=== PATIENT | male | born 1975 | race African-American/Black ===

== ENCOUNTER 2017-09-19 00:36 | Emergency (ER) | payer SELFPAY ==
[~2017-09-19] VITALS: Ht 193 cm; Wt 89.8 kg
[2017-09-19 01:12] VITALS: BP 117/65
[2017-09-19 01:15] LABS: BASOPHILS % (AUTO) 0.9 % (0.0-2.0); LYMPHOCYTES % (AUTO) 32.9 % (20.0-45.0); MEAN CORPUSCULAR HEMOGLOBIN 29.4 PG (27.0-31.0); MEAN CORPUSCULAR HGB CONC 33.3 G/DL (32.0-36.0); MEAN CORPUSCULAR VOLUME 88 FL (80-99); MEAN PLATELET VOLUME 7.6 FL (6.5-10.1); MONOCYTES % (AUTO) 8.4 % (1.0-10.0); NEUTROPHILS % (AUTO) 56.8 % (45.0-75.0); PLATELET COUNT 190 K/UL (150-450); RED BLOOD COUNT 5.15 M/UL (4.70-6.10); RED CELL DISTRIBUTION WIDTH 11.8 % (11.6-14.8); WHITE BLOOD COUNT 5.7 K/UL (4.8-10.8)
[2017-09-19 01:25] LABS: ANION GAP 8 mmol/L (5-15); CALCIUM 8.8 MG/DL (8.5-10.1); CARBON DIOXIDE 28 MMOL/L (21-32); CHLORIDE 103 MMOL/L (98-107); CREATININE 1.4 MG/DL (0.55-1.30); GLOMERULAR FILTRATION RATE > 60 mL/min (>60); POTASSIUM 3.5 MMOL/L (3.5-5.1); SODIUM 139 MMOL/L (136-145)
[2017-09-19 01:31] LABS: ALANINE AMINOTRANSFERASE 27 U/L (12-78); ALBUMIN/GLOBULIN RATIO 1.2 (1.0-2.7); ALCOHOL < 3 mg/dL; ASPARTATE AMINO TRANSFERASE 35 U/L (15-37); TOTAL PROTEIN 6.7 G/DL (6.4-8.2)
--- NOTE | 2017-09-19 01:34 | Emergency Room Report ---
History of Present Illness General Chief Complaint: Syncope Source: Patient Present Illness HPI 42-year-old male presents ED for evaluation. Friend brought patient to the emergency room because he passed out at the movie theater today. Patient had a witnessed fall and possible shaking episode. Patient does have a history of seizure and has not had a seizure in over 10 years. Patient admits to marijuana use. Denies any other drug use. Feels very tremulous and notes diffuse body spasms. States pain is a 10 out of 10, cramping, nonradiating. Denies headaches, blurry vision, nausea or vomiting. Denies chest pain shortness of breath. No other aggravating relieving factors. Denies any other associated symptoms Allergies: Coded Allergies: No Known Allergies (Unverified , 09/19/17) Patient History Past Medical History: seizures Past Surgical History: none Pertinent Family History: none Social History: Reports: drug use, Denies: smoking, alcohol use Immunizations: UTD Reviewed Nursing Documentation: PMH: Agreed, PSxH: Agreed Nursing Documentation-PMH Hx Seizures: Yes - seizure 10yrs ago Review of Systems All Other Systems: negative except mentioned in HPI Physical Exam Vital Signs Date Time Temp Pulse Resp B/P (MAP) Pulse Ox O2 Delivery O2 Flow Rate FiO2 09/19/17 00:37 96.6 100 18 153/101 98 Room Air Sp02 EP Interpretation: reviewed, normal General Appearance: alert, GCS 15, non-toxic, mild distress Head: normocephalic, atraumatic Eyes: bilateral eye normal inspection, bilateral eye PERRL ENT: hearing grossly normal, normal pharynx, no angioedema, normal voice Neck: full range of motion, supple/symm/no masses Respiratory: chest non-tender, lungs clear, normal breath sounds, speaking full sentences Cardiovascular #1: regular rate, rhythm, no edema Cardiovascular #2: 2+ carotid (R), 2+ carotid (L), 2+ radial (R), 2+ radial (L) , 2+ dorsalis pedis (R), 2+ dorsalis pedis (L) Gastrointestinal: normal bowel sounds, non tender, soft, non-distended, no guarding, no rebound Rectal: deferred Genitourinary: normal inspection, no CVA tenderness Musculoskeletal: back normal, gait/station normal, normal range of motion, non- tender Neurologic: alert, oriented x3, responsive, motor strength/tone normal, sensory intact, speech normal Psychiatric: judgement/insight normal, memory normal, no suicidal/homicidal ideation, anxious Reflexes: 3+ bicep (R), 3+ bicep (L), 3+ tricep (R), 3+ tricep (L), 3+ knee (R) , 3+ knee (L) Skin: normal color, no rash, warm/dry, well hydrated Lymphatic: no adenopathy Medical Decision Making Diagnostic Impression: Primary Impression: Syncope Qualified Codes: R55 - Syncope and collapse Additional Impression: Muscle spasm ER Course Hospital Course 42-year-old male presents ED s/p syncopal episode. c/o diffuse body pain/spasms Differential diagnoses include: arrythmia, dehydration, intracranial bleed, seizure Clinical course Patient placed on stretcher. on director of cardiac cath lab. After initial history and physical I ordered labs, EKG, chest Xray, IVFs, CT Brain labs reviewed- no leukocytosis, Hb/Hct stable, electrolytes ok, troponins negative CT Brain - unremarkable EKG - NSR, no acute ischemic changes interpreted by me Patient given Valium, Toradol and morphine with muscle spasms improved. Patient feels better wishes to be discharged. Patient did smoke marijuana earlier which could be there caused a seizure (patient has remote history of seizures) or caused patient to pass out. Regardless patient is safe to discharge. girlfriend at bedside and can take patient home I. I feel this is a highly complex case requiring extensive working including EKG/Rhythm strip, Xray/CT/US, Blood/urine lab work, repeat exams while in ED, and administration of strong opiates/narcotics for pain control, admission to hospital or close patient follow up. Diagnosis - syncope, muscle spasm Stable and discharged to home with Rx Motrin, [place], Flexeril. Followup with PMD. Return to ED if symptoms recur or worsen Labs Test 09/19/17 01:00 White Blood Count 5.7 K/UL (4.8-10.8) Red Blood Count 5.15 M/UL (4.70-6.10) Hemoglobin 15.1 G/DL (14.2-18.0) Hematocrit 45.4 % (42.0-52.0) Mean Corpuscular Volume 88 FL (80-99) Mean Corpuscular Hemoglobin 29.4 PG (27.0-31.0) Mean Corpuscular Hemoglobin Concent 33.3 G/DL (32.0-36.0) Red Cell Distribution Width 11.8 % (11.6-14.8) Platelet Count 190 K/UL (150-450) Mean Platelet Volume 7.6 FL (6.5-10.1) Neutrophils (%) (Auto) 56.8 % (45.0-75.0) Lymphocytes (%) (Auto) 32.9 % (20.0-45.0) Monocytes (%) (Auto) 8.4 % (1.0-10.0) Eosinophils (%) (Auto) 1.0 % (0.0-3.0) Basophils (%) (Auto) 0.9 % (0.0-2.0) Sodium Level 139 MMOL/L (136-145) Potassium Level 3.5 MMOL/L (3.5-5.1) Chloride Level 103 MMOL/L (98-107) Carbon Dioxide Level 28 MMOL/L (21-32) Anion Gap 8 mmol/L (5-15) Blood Urea Nitrogen 15 mg/dL (7-18) Creatinine 1.4 MG/DL (0.55-1.30) Estimat Glomerular Filtration Rate > 60 mL/min (>60) Glucose Level 140 MG/DL (74-106) Calcium Level 8.8 MG/DL (8.5-10.1) Total Bilirubin 1.0 MG/DL (0.2-1.0) Aspartate Amino Transf (AST/SGOT) 35 U/L (15-37) Alanine Aminotransferase (ALT/SGPT) 27 U/L (12-78) Alkaline Phosphatase 70 U/L (46-116) Total Creatine Kinase 635 U/L (26-308) Troponin I 0.005 ng/mL (0.000-0.056) Total Protein 6.7 G/DL (6.4-8.2) Albumin 3.7 G/DL (3.4-5.0) Globulin 3.0 g/dL Albumin/Globulin Ratio 1.2 (1.0-2.7) Salicylates Level < 0.2 ug/mL (2.8-20) Acetaminophen Level < 2 MCG/ML (10-30) Serum Alcohol < 3 mg/dL EKG Diagnostic Results Rate: normal Rhythm: NSR ST Segments: no acute changes ASA given to the pt in ED: No Rhythm Strip Diag. Results EP Interpretation: yes Rhythm: NSR, no PVC's, no ectopy CT/MRI/US Diagnostic Results CT/MRI/US Diagnostic Results : Imaging Test Ordered: CT Head Impression no acute process Last Vital Signs Date Time Temp Pulse Resp B/P (MAP) Pulse Ox O2 Delivery O2 Flow Rate FiO2 09/19/17 01:12 96.9 86 18 117/65 98 Room Air Status: improved Disposition: HOME, SELF-CARE Condition: Stable Scripts Cyclobenzaprine Hcl* (FLEXERIL*) 10 Mg Tablet 10 MG ORAL TID Y for Muscle Spasm, #20 TAB Prov: HANY BOLAÑOS M.D. 09/19/17 Hydrocodone Bit/Acetaminophen 5-325* (NORCO 5-325*) 1 Each Tablet 1 TAB ORAL Q6H Y for For Pain, #10 TAB 0 Refills Prov: HANY BOLAÑOS M.D. 09/19/17 Ibuprofen* (MOTRIN*) 600 Mg Tablet 600 MG ORAL Q8H Y for For Pain, #30 TAB 0 Refills Prov: HANY BOLAÑOS M.D. 09/19/17 Referrals: NOT [facility]OSEN [facility]/,REFERRING (PCP) HANY BOLAÑOS M.D. Sep 19, 2017 01:34
[2017-09-19 02:01] LABS: ACETAMINOPHEN < 2 MCG/ML (10-30)
[2017-09-19] MEDS: Ketorolac 30mg Inj IM ONE (02:13)
[2017-09-19 02:34] VITALS: BP 116/61
[2017-09-19] MEDS ORDERED: Morphine Sulfate 4mg/ml Inj ONE (02:39)
[2017-09-19] MEDS ORDERED: NORCO 5-325 TA1 EACH ORAL (02:40)
[2017-09-19] MEDS ORDERED: CYCLOBENZAPRINE10 MG ORAL (02:40)
[2017-09-19] MEDS ORDERED: IBUPROFEN600 MG ORAL (02:40)
[2017-09-19] MEDS: Morphine Sulfate 4mg/ml Inj IVP ONE (02:48)
[2017-09-19 02:50] VITALS: BP 116/61
--- NOTE | 2017-09-19 12:18 | Diagnostic Imaging Report ---
Indication: SYNCOPE Technique: Continuous helical CT scanning of the head was performed without intravenous contrast material. Axial and coronal 5 mm sections were generated. Radiation dose was minimized using automated exposure control Dose: Total Dose Length Product - DLP [address] Dose Index - CTDIvol(s) 70.38 mGy. Comparison: None Findings: The ventricular system is normal in size and configuration. There is no shift of midline structures. No abnormal extra-axial fluid collections are noted. There is no evidence of intracerebral bleeding. No other abnormal high or low density areas are noted within the brain. The calvarium is intact. Visualized orbits and sinuses are unremarkable. Impression: Normal CT scan of the head without contrast material. This agrees with the preliminary interpretation provided overnight by [facility] service. The CT scanner at [facility] is accredited by the [employer] and the scans are performed using protocols designed to limit radiation exposure to as low as reasonably achievable to attain images of sufficient resolution adequate for diagnostic evaluation.
--- NOTE | 2017-09-21 08:40 | Cardiology Report ---
APPROVED REPORT EKG Measurement Heart [id number] Normal sinus rhythm Normal ECG
== END 2017-09-19 02:53 | disposition home or self-care (01) ==
LOC: EMR 01:00
DX: R55 Syncope and collapse (principal); M62.838 Other muscle spasm; F12.90 Cannabis use, unspecified, uncomplicated
CPT/HCPCS: 36415; 70450; 80053; 82550; 84484; 85025; 93005; 96361; 96372; 96374; 96375; 99284; G0480; J1885; J2270; J3360; 80329

== ENCOUNTER 2017-09-22 10:56 | Emergency (ER) | payer SELFPAY ==
[~2017-09-22] VITALS: Ht 193 cm; Wt 90.7 kg
[~2017-09-22 10:56] MED LIST: CYCLOBENZAPRINE10 MG ORAL; IBUPROFEN600 MG ORAL; NORCO 5-325 TA1 EACH ORAL
[2017-09-22 11:08] VITALS: BP 142/100
[2017-09-22] MEDS ORDERED: Ketorolac 60mg Inj IM ONE (11:30)
[2017-09-22] MEDS ORDERED: Methocarbamol 500mg tab ORAL ONE (11:30)
--- NOTE | 2017-09-22 12:18 | Diagnostic Imaging Report ---
Indication: TRAUMA neck pain, right shoulder and arm pain, dizziness Technique: Spiral acquisitions obtained through the cervical spine. No IV contrast utilized. Multiplanar reconstructions were generated. Total dose length product 517 mGycm. CTDIvol(s) 21 mGy. Dose reduction achieved using automated exposure control Comparison: None Findings: There is slight reversal of the normal cervical lordosis. Otherwise normal bony alignment. The vertebral body heights are preserved. The disc spaces are preserved. At C3-4, there is central posterior disc protrusion. This does not significantly narrow the spinal canal. The neural foramina are preserved. At C4-5, there are posterior osteophytes and broad-based central posterior disc protrusion. There is results in borderline narrowing of the spinal canal. The neural foramina are preserved. At C5-6, there is mild circumferential annular bulge which does not significantly narrow the spinal canal. At the remaining levels, no significant disc bulge or protrusion, spinal stenosis, or neural foraminal narrowing. The included extraspinal soft tissues are unremarkable. There are some calcifications in the tonsillar pillars. Impression: No acute bony trauma Minimal degenerative changes, as detailed above The CT scanner at [facility] is accredited by the [employer] and the scans are performed using protocols designed to limit radiation exposure to as low as reasonably achievable to attain images of sufficient resolution adequate for diagnostic evaluation.
--- NOTE | 2017-09-22 14:08 | Emergency Room Report ---
History of Present Illness General Chief Complaint: Pain Source: Patient Present Illness HPI Patient evaluated for syncope 09/19. Now with neck and shoulder pain which were present at that time. The pain is rated 8/10, both shoulder and neck. Worse with palpation and movement, somewhat radiating towards each other. There is also some mild lower back pain (he states he has osteoarthritis there). The event occurred in a movie theater. He started feeling nausea and became diaphoretic and got up. He walked to the entrance and then felt dizzy and passed out. There is some question about possible shaking at the time he was out. He regained consciousness quickly and came for evaluation here. He has a distant history of seizures and was treated with tegretal which was stopped over 10 years ago. He does have a resting tremor. He also reports DJD of his lower spine. No fevers, NVD (since event), dysuria, change in vision, rashes, sore throat, chest pain, palpitations, depression. 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 Reviewed Nursing Documentation: PMH: Agreed, PSxH: Agreed Nursing Documentation-PMH Hx Seizures: Yes - seizure 10yrs ago Review of Systems All Other Systems: negative except mentioned in HPI Physical Exam Vital Signs Date Time Temp Pulse Resp B/P (MAP) Pulse Ox O2 Delivery O2 Flow Rate FiO2 09/22/17 10:59 97.9 90 20 142/100 98 Room Air Sp02 EP Interpretation: reviewed, normal General Appearance: well appearing, no apparent distress, GCS 15 Head: normocephalic, atraumatic Eyes: bilateral eye normal inspection, bilateral eye PERRL, bilateral eye EOMI ENT: moist mucus membranes Neck: full range of motion, supple, tender lateral - more on R, muscular Respiratory: lungs clear, normal breath sounds Cardiovascular #1: regular rate, rhythm Cardiovascular #2: 2+ radial (R) Gastrointestinal: normal inspection, normal bowel sounds, non tender, no mass, non-distended Musculoskeletal: back normal, gait/station normal, decreased range of motion - R shoulder, with tenderness to palpation, no crepetance, elbow non-tender Neurologic: alert, oriented x3, aboriginal education teacher III-XII nml as tested, motor strength/tone normal - fine resting tremor, DTRs symmetric, sensory intact, cerebellar normal , normal gait, speech normal Psychiatric: mood/affect normal - concerned Skin: normal inspection, warm/dry Medical Decision Making Diagnostic Impression: Primary Impression: Shoulder contusion Qualified Codes: S40.011A - Contusion of right shoulder, initial encounter Additional Impressions: Neck pain Osteoarthritis Qualified Codes: M47.812 - Spondylosis without myelopathy or radiculopathy, cervical region Muscle spasm ER Course Patient presents post syncopal episode 09/19 with shoulder and neck pain. DDx; contusion, fx, sprain, strain. Due to the fact these injuries happened when the patient was unconscious and there is persistent pain, CT neck and x-rays of chest and shoulder indicated. Labs and EKG from 09/19 will be reviewed. He will be treated with toradol and robaxin. Urine ordered. EKG below. CT head Impression: Normal CT scan of the head without contrast material. Labs with slightly elevated creatinine. Normal H/H and WBC, platelets. Xrays below with DJD neck and reversal of normal curvature. Sling applied by tech and position and neurovasc checked by me = normal. Improved with treatment. Discussion regarding tremor, prior h/o seizures (by history, this was not a primary seizure) and suggested physical therapy. Measure to prevent LOC discussed. 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 Because of the forewarning, DMV notification is not indicated. Patient stable for outpatient observation and treatment. Labs reviewed from 09/19. EKG Diagnostic Results EP Interpretation: EKG reviewed from 09/19 Rate: normal Rhythm: NSR ST Segments: no acute changes Rhythm Strip Diag. Results EP Interpretation: yes - from EKG 09/19 Rhythm: NSR, no PVC's, no ectopy, other - rate 77 1st degree AV block Chest X-Ray Diagnostic Results Chest X-Ray Diagnostic Results : Chest X-Ray Ordered: Yes # of Views/Limited/Complete: 1 View Indication: Other Interpretation: no consolidation, no effusion, no pneumothorax, no acute cardiopulmonary disease Impression: No acute disease Electronically Signed by: Yandel Chinchilla MD Other X-Ray Diagnostic Results Other X-Ray Diagnostic Results : X-Ray ordered: R shoulder # of Views/Limited Vs Complete: 3 View Indication: Pain EP Interpretation: Yes Interpretation: no dislocation, no soft tissue swelling, no fractures Impression: No acute disease Electronically Signed by: Yandel Chinchilla MD CT/MRI/US Diagnostic Results CT/MRI/US Diagnostic Results : Imaging Test Ordered: C spine Impression Findings: There is slight reversal of the normal cervical lordosis. Otherwise normal bony alignment. The vertebral body heights are preserved. The disc spaces are preserved. At C3-4, there is central posterior disc protrusion. This does not significantly narrow the spinal canal. The neural foramina are preserved. At C4-5, there are posterior osteophytes and broad-based central posterior disc protrusion. There is results in borderline narrowing of the spinal canal. The neural foramina are preserved. At C5-6, there is mild circumferential annular bulge which does not significantly narrow the spinal canal. At the remaining levels, no significant disc bulge or protrusion, spinal stenosis, or neural foraminal narrowing. The included extraspinal soft tissues are unremarkable. There are some calcifications in the tonsillar pillars. Impression: No acute bony trauma Minimal degenerative changes, as detailed above Last Vital Signs Date Time Temp Pulse Resp B/P (MAP) Pulse Ox O2 Delivery O2 Flow Rate FiO2 09/22/17 14:26 97.9 71 18 140/83 98 Room Air Status: improved Disposition: HOME, SELF-CARE Condition: Improved Scripts Methocarbamol* (ROBAXIN*) 500 Mg Tablet 500 MG PO TID, #10 TAB 0 Refills Prov: Yandel Chinchilla M.D. 09/22/17 Lorazepam* (ATIVAN*) 0.5 Mg Tablet 0.5 MG ORAL THREE TIMES A DAY Y for muscle spasms, #10 TAB Prov: Yandel Chinchilla M.D. 09/22/17 Referrals: NOT CHOSEN MONICA/,REFERRING (PCP) Yandel Chinchilla M.D. Sep 22, 2017 14:08
[2017-09-22] MEDS ORDERED: ATIVAN0.5 MG ORAL (14:12)
[2017-09-22] MEDS ORDERED: ROBAXIN500 MG PO (14:12)
[2017-09-22 14:25] VITALS: BP 140/83
[2017-09-22 14:26] VITALS: BP 140/83
--- NOTE | 2017-09-22 15:26 | Diagnostic Imaging Report ---
Indication: PAIN Technique: 2 views of the chest Comparison: none. Findings: Lungs and pleural spaces are clear. Heart size is normal. Bones are unremarkable.. Impression: No acute process
--- NOTE | 2017-09-22 15:28 | Diagnostic Imaging Report ---
Indication: PAIN, status post fall Technique: 3 views of the left shoulder Comparison: None Findings: No acute fractures or dislocations. Joint spaces are preserved. Impression: Negative
== END 2017-09-22 14:27 | disposition home or self-care (01) ==
LOC: EMR 12:12
DX: S40.011A Contusion of right shoulder, initial encounter (principal); M54.2 Cervicalgia; W19.XXXA Unspecified fall, initial encounter; Y92.254 Theater (live) as the place of occurrence of the external cause; R42 Dizziness and giddiness; M47.812 Spondylosis without myelopathy or radiculopathy, cervical region; Z86.69 Personal history of other diseases of the nervous system and sense organs
CPT/HCPCS: 71020; 72125; 96374; 99284

== ENCOUNTER 2017-11-30 22:28 | Emergency (ER) | payer SELFPAY ==
[~2017-11-30] VITALS: Ht 193 cm; Wt 94.3 kg
[~2017-11-30 22:28] MED LIST changes: +ATIVAN0.5 MG ORAL; +ROBAXIN500 MG PO
[2017-11-30] MEDS ORDERED: NKM (22:35)
[2017-11-30 22:40] VITALS: BP 113/71
[2017-11-30] MEDS ORDERED: GABAPENTIN100 MG ORAL (22:59)
[2017-11-30] MEDS ORDERED: PREDNISONE20 MG ORAL (22:59)
--- NOTE | 2017-11-30 23:00 | Emergency Room Report ---
History of Present Illness General Chief Complaint: General Complaint Source: Patient Present Illness HPI Is a 42-year-old male with motion of the past medical history. He presents with chief complaint of numbness to both hands. His been ongoing for the last 3 weeks now. Numbness and tingling this is occurred to the fourth and fifth fingers bilaterally. Worse when he flexes neck. No trauma. No fever or chills. No focal deficit there is no incontinence of bowel or urine. Allergies: Coded Allergies: No Known Allergies (Unverified , 09/19/17) Patient History Past Medical History: see triage record, old chart reviewed Past Surgical History: none Pertinent Family History: none Social History: Denies: smoking Immunizations: other Reviewed Nursing Documentation: PMH: Agreed, PSxH: Agreed Nursing Documentation-PMH Past Medical History: No History, Except For Hx Seizures: Yes - seizure 1987 Review of Systems Eye: Denies: eye pain, blurred vision ENT: Denies: ear pain, nose congestion, throat swelling Respiratory: Denies: cough, shortness of breath Cardiovascular: Denies: chest pain, palpitations Gastrointestinal: Denies: abdominal pain, diarrhea, nausea, vomiting Musculoskeletal: Denies: back pain, joint pain Skin: Denies: rash Neurological: Denies: headache, numbness Endocrine: Denies: increased thirst, increased urine Hematologic/Lymphatic: Denies: easy bruising All Other Systems: negative except mentioned in HPI Physical Exam Vital Signs Date Time Temp Pulse Resp B/P (MAP) Pulse Ox O2 Delivery O2 Flow Rate FiO2 11/30/17 22:31 97.3 67 14 113/71 97 Room Air vitals normal Sp02 EP Interpretation: reviewed, normal General Appearance: well appearing, no apparent distress, alert Head: normocephalic, atraumatic Eyes: bilateral eye PERRL, bilateral eye EOMI ENT: hearing grossly normal, normal pharynx Neck: full range of motion, supple, no meningismus Respiratory: chest non-tender, lungs clear, normal breath sounds Cardiovascular #1: regular rate, rhythm, no murmur Gastrointestinal: normal bowel sounds, non tender, no mass, no organomegaly, no bruit, non-distended Musculoskeletal: back normal, gait/station normal, normal range of motion Psychiatric: mood/affect normal Skin: warm/dry Medical Decision Making Diagnostic Impression: Primary Impression: Cervical radiculopathy at C8 ER Course Patient with cervical radiculopathy at that C8 level. He has CT scan in the past the sole degenerative changes of his neck. No evidence of cauda equina syndrome, spinal or abscess or neoplastic process. He may need an MRI and referred to see a medicaid eligibility specialist. Last Vital Signs Date Time Temp Pulse Resp B/P (MAP) Pulse Ox O2 Delivery O2 Flow Rate FiO2 11/30/17 22:31 97.3 67 14 113/71 97 Room Air Status: unchanged Disposition: HOME, SELF-CARE Condition: Stable Scripts Gabapentin* (GABAPENTIN*) 100 Mg Capsule 100 MG ORAL THREE TIMES A DAY, #30 CAP Prov: BARBIE HILLMAN M.D. 11/30/17 Prednisone* (PREDNISONE*) 20 Mg Tablet 40 MG ORAL DAILY, #10 TAB Prov: BARBIE HILLMAN M.D. 11/30/17 Additional Instructions: Followup with your DrBirgit in 7 days. You may be referred to see a medicaid eligibility specialist. You may need an MRI. Your DrBirgit can order this is an outpatient. Return if symptom worsen. BARBIE HILLMAN M.D. Nov 30, 2017 23:00
[2017-11-30 23:11] VITALS: BP 113/71
== END 2017-11-30 23:10 | disposition home or self-care (01) ==
LOC: EMR 23:10
DX: M54.12 Radiculopathy, cervical region (principal)
CPT/HCPCS: 99283

== ENCOUNTER 2017-12-22 01:51 | Emergency (ER) | payer SELFPAY ==
[~2017-12-22] VITALS: Ht 193 cm; Wt 93.4 kg
[~2017-12-22 01:51] MED LIST changes: +GABAPENTIN100 MG ORAL; +NKM; +PREDNISONE20 MG ORAL
[2017-12-22] MEDS ORDERED: NKM (01:55)
[2017-12-22 02:00] VITALS: BP 105/63
--- NOTE | 2017-12-22 02:14 | Emergency Room Report ---
History of Present Illness General Chief Complaint: Pain Source: Patient Present Illness HPI Is a 42-year-old male who is right-hand dominant. He presents with chief complaint of numbness to both hands. Has been a chronic problem for at least a couple months now. I saw him last month for the same thing. He said when I gave him did not work. He has not followup with his primary care for MRI. CT scan in the past showed degenerative disc disease of the cervical spine. Allergies: Coded Allergies: No Known Allergies (Unverified , 09/19/17) Patient History Past Medical History: see triage record, old chart reviewed Past Surgical History: none Pertinent Family History: none Social History: Denies: smoking Immunizations: other Reviewed Nursing Documentation: PMH: Agreed, PSxH: Agreed Nursing Documentation-PMH Hx Seizures: Yes Review of Systems Eye: Denies: eye pain, blurred vision ENT: Denies: ear pain, nose congestion, throat swelling Respiratory: Denies: cough, shortness of breath Cardiovascular: Denies: chest pain, palpitations Gastrointestinal: Denies: abdominal pain, diarrhea, nausea, vomiting Musculoskeletal: Denies: back pain, joint pain Skin: Denies: rash Neurological: Denies: headache, numbness Endocrine: Denies: increased thirst, increased urine Hematologic/Lymphatic: Denies: easy bruising All Other Systems: negative except mentioned in HPI Physical Exam Vital Signs Date Time Temp Pulse Resp B/P (MAP) Pulse Ox O2 Delivery O2 Flow Rate FiO2 12/22/17 01:53 97.6 71 14 105/63 96 Room Air 97.5 vitals normal Sp02 EP Interpretation: reviewed, normal General Appearance: well appearing, no apparent distress, alert Head: normocephalic, atraumatic Eyes: bilateral eye PERRL, bilateral eye EOMI ENT: hearing grossly normal, normal pharynx Neck: full range of motion, supple, no meningismus Respiratory: chest non-tender, lungs clear, normal breath sounds Cardiovascular #1: regular rate, rhythm, no murmur Gastrointestinal: normal bowel sounds, non tender, no mass, no organomegaly, no bruit, non-distended Musculoskeletal: back normal, gait/station normal, normal range of motion Psychiatric: mood/affect normal Skin: warm/dry Medical Decision Making Diagnostic Impression: Primary Impression: Neuropathy ER Course 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 This may be a cervical disc problem. No evidence of cauda equina syndrome, spinal after abscess or neoplastic process. When I ask him if he had followup yet, he said no and walked out. He said he want some medicine to fix his problem. Last Vital Signs Date Time Temp Pulse Resp B/P (MAP) Pulse Ox O2 Delivery O2 Flow Rate FiO2 12/22/17 01:53 97.6 71 14 105/63 96 Room Air 97.5 Status: improved Disposition: HOME, SELF-CARE Condition: Stable Patient Instructions: PAIN, Uncertain Cause (Acute) Additional Instructions: Followup with your Dr. in 7 days. Return if worse BARBIE HILLMAN M.D. Dec 22, 2017 02:14
[2017-12-22 02:30] VITALS: BP 105/63
== END 2017-12-22 03:00 | disposition home or self-care (01) ==
LOC: EMR 02:57
DX: G62.9 Polyneuropathy, unspecified (principal)
CPT/HCPCS: 99282

== ENCOUNTER 2018-02-16 18:36 | Emergency (ER) | payer MEDICAID ==
[~2018-02-16] VITALS: Ht 193 cm; Wt 94.3 kg
[2018-02-16 18:41] VITALS: BP 115/77
[2018-02-16] MEDS ORDERED: PROMETHAZINE-C118 M1 ORAL (19:36)
[2018-02-16] MEDS ORDERED: TYLENOL EXTRA500 MG ORAL (19:36)
[2018-02-16] MEDS ORDERED: PSEUDOEPHEDRINE30 MG PO (19:36)
--- NOTE | 2018-02-16 19:37 | Emergency Room Report ---
History of Present Illness General Chief Complaint: Sore Throat Source: Patient, Medical Record Present Illness HPI 43 yo male patient presents to ER complaining of cough x5 days. Also complains of sore throat and ear fullness. Reports cough began before onset of throat and ear symptoms. Also complains of congestion. Reports dry cough, no blood in sputum. Reports cough worse at night. Denies hearing loss or tinnitus. Denies vertigo. Denies HERNANDEZ, vision changes, neck pain, ear pain. Denies chest pain, SOB, abdominal pain. Denies diarrhea, nausea, vomiting. Denies smoking. Denies hx of cardiovascular disease or asthma. Allergies: Coded Allergies: No Known Allergies (Unverified , 09/19/17) Patient History Past Medical History: see triage record Reviewed Nursing Documentation: PMH: Agreed; PSxH: Agreed Nursing Documentation-PMH Past Medical History: No History, Except For Hx Seizures: Yes - 1997 Review of Systems All Other Systems: negative except mentioned in HPI Physical Exam Vital Signs Date Time Temp Pulse Resp B/P (MAP) Pulse Ox O2 Delivery O2 Flow Rate FiO2 02/16/18 18:41 98.0 81 18 115/77 96 Room Air 98.0 Sp02 EP Interpretation: reviewed, normal General Appearance: well appearing, no apparent distress, alert, GCS 15, non- toxic Head: normocephalic, atraumatic Eyes: bilateral eye normal inspection, bilateral eye PERRL ENT: hearing grossly normal, normal pharynx, no angioedema, normal voice, TMs + canals normal, uvula midline, moist mucus membranes, other - no pharyngeal erythema, no tonsillar exudates, no uvula deviation; cerumen present bilaterally Neck: full range of motion Respiratory: lungs clear, normal breath sounds, no rhonchi, no respiratory distress, no accessory muscle use, no wheezing, speaking full sentences, other Cardiovascular #1: regular rate, rhythm, no edema Musculoskeletal: back normal, digits/nails normal, gait/station normal, normal range of motion, non-tender Neurologic: alert, oriented x3, responsive, motor strength/tone normal, sensory intact Psychiatric: mood/affect normal Skin: no rash Lymphatic: no adenopathy Medical Decision Making PA Attestation Dr. Barnett is my supervising Physician whom patient management has been discussed with. Diagnostic Impression: Primary Impression: Sore throat Additional Impression: Upper respiratory infection ER Course Pt presents to ED c/o sore throat and cough. DDX considered but are not limited to pharyngitis, laryngitis, URI, peritonsillar abscess, tonsillitis. Low suspicion for peritonsillar abscess, no neck stiffness, no hot potato voice , no stridor.. VITAL SIGNS are WNL, patient is afebrile. CURES report negative ORDERS: -Viscous Lidocaine ER COURSE: Don't use Q-tips PE benign: Lungs clear to auscultation. Does not require imaging at this time. Sore throat and ear fullness likely caused by cough, cough likely viral in nature, does not require imaging. Salt water gargles DISCHARGE: Rx provided for promethazine with codeine. Rx Tylenol for pain and fever symptoms Rx for Sudafed for congestion At this time pt is stable for d/c to home. Patient is resting comfortably, in no acute distress, nontoxic appearing, talking without difficulty. Will provide with patient care instructions and any necessary prescriptions. Patient to take medication as instructed. Care plan and follow-up instructions provided. Patient questions asked and answered. Patient instructed to follow-up with primary care provider in 3 - 5 days. ER precautions given. Patient instructed to return to ER immediately for any new or worsening of symptoms. Last Vital Signs Date Time Temp Pulse Resp B/P (MAP) Pulse Ox O2 Delivery O2 Flow Rate FiO2 02/16/18 18:41 98.0 81 18 115/77 96 Room Air 98.1 Disposition: HOME, SELF-CARE Condition: Stable Scripts Pseudoephedrine Hcl* (SUDAFED*) 30 Mg Tablet 30 MG PO Q6H for 7 Days, #24 TAB Prov: Milton Pelayo 02/16/18 Codeine/Promethazine Hcl* (PROMETHAZINE-CODEINE SYRUP*) 118 Ml Syrup 5 ML ORAL Q6H PRN for For Cough for 5 Days, #100 ML 0 Refills Prov: Milton Pelayo 02/16/18 Acetaminophen* (TYLENOL EXTRA STRENGTH*) 500 Mg Tablet 500 MG ORAL Q8H PRN for Prn Headache/Temp > 101, #30 TAB 0 Refills Prov: Milton Pelayo 02/16/18 Patient Instructions: Sore Throat, Upper Respiratory Infection, Adult Additional Instructions: Followup with primary care provider in 3 -5 days. Take medications as directed. Patient questions asked and answered. ER precautions given, patient instructed to return to ER immediately for any new or worsening of symptoms. Milton Pelayo Feb 16, 2018 19:37
[2018-02-16] MEDS ORDERED: Lidocaine 2% Visc 15ml soln ORAL ONE (19:45)
[2018-02-16 19:53] VITALS: BP 115/77
== END 2018-02-16 19:53 | disposition home or self-care (01) ==
LOC: EMR 18:50
DX: J02.9 Acute pharyngitis, unspecified (principal); J06.9 Acute upper respiratory infection, unspecified; Z86.69 Personal history of other diseases of the nervous system and sense organs
CPT/HCPCS: 99284